=== PATIENT | female | born 1955 | race Caucasian/White ===

== ENCOUNTER 2016-08-17 17:48 | Emergency (ER) | payer OTHER ==
[~2016-08-17 17:48] MED LIST: ARTHRITIS MED; BACTRIM DS 8001 TAB; C-LEXIN500 MG PO; CELEBREX200 MG; DICLOFENAC50 MG; FLOVENT0.11 MG/AC IH; NABUMETONE500 MG PO; NORCO 325 MG-51 TAB PO; NORCO 325 MG-7.1 TAB PO; [UNRECOGNIZED DRUG - OTHER] PO
[2016-08-17] MEDS ORDERED: ALEVE220 M1 PO (17:57)
[2016-08-17] MEDS ORDERED: AMOXICILLIN875 MG PO (20:01)
[2016-08-17] MEDS ORDERED: VALIUM 2MG T2 MG/TAB PO (20:01)
[2016-08-17 20:22] VITALS: BP 108/62
== END 2016-08-17 20:22 | disposition home or self-care (01) ==
LOC: ED 17:48
DX: R42 Dizziness and giddiness (principal); J01.90 Acute sinusitis, unspecified
CPT/HCPCS: J2405; J7030

== ENCOUNTER → 2016-08-29 | Outpatient (CLI) | payer OTHER ==
[2016-08-17 20:22] VITALS: BP 108/62
[~2016-08-29] MED LIST changes: +ALEVE220 M1 PO; +AMOXICILLIN875 MG PO; +VALIUM 2MG T2 MG/TAB PO
== END ==
LOC: LAB 07:30
DX: H65.01 Acute serous otitis media, right ear (principal); R19.5 Other fecal abnormalities; J30.0 Vasomotor rhinitis; M18.11 Unilateral primary osteoarthritis of first carpometacarpal joint, right hand; M17.9 Osteoarthritis of knee, unspecified

== ENCOUNTER → 2017-06-01 | Outpatient (CLI) | payer BC ==
[2017-06-01 16:21] LABS: URINE APPEARANCE HAZY; URINE COLOR PALE YELLOW
[2017-06-01 16:22] LABS: URINE BILIRUBIN NEGATIVE (NEGATIVE); URINE BLOOD TRACE (NEGATIVE); URINE GLUCOSE NEGATIVE (NEGATIVE); URINE KETONE NEGATIVE (NEGATIVE); URINE LEUKOCYTE ESTERASE 1+ (NEGATIVE); URINE NITRATE NEGATIVE (NEGATIVE); URINE PROTEIN(semi-quant) TRACE mg/dL (NEGATIVE); URINE UROBILINOGEN NORMAL (NORMAL); URINE WBC 31-50 /hpf (0-3)
[2017-06-01 17:42] LABS: CLUE CELLS NOT OBSERVED (Not Observd)
== END ==
LOC: LAB 15:50
PROVIDERS: Nurse Practitioner Family
DX: N76.0 Acute vaginitis (principal); R39.9 Unspecified symptoms and signs involving the genitourinary system
CPT/HCPCS: Q0111

== ENCOUNTER → 2017-06-29 | Outpatient (CLI) | payer BC ==
[2017-06-29 11:51] LABS: URINE APPEARANCE CLEAR; URINE COLOR YELLOW
[2017-06-29 11:52] LABS: URINE BILIRUBIN NEGATIVE (NEGATIVE); URINE BLOOD TRACE (NEGATIVE); URINE GLUCOSE NEGATIVE (NEGATIVE); URINE KETONE NEGATIVE (NEGATIVE); URINE LEUKOCYTE ESTERASE NEGATIVE (NEGATIVE); URINE NITRATE NEGATIVE (NEGATIVE); URINE PROTEIN(semi-quant) NEGATIVE (NEGATIVE); URINE UROBILINOGEN NORMAL (NORMAL)
== END ==
LOC: LAB 11:03
PROVIDERS: Family Medicine
DX: N76.0 Acute vaginitis (principal); N39.0 Urinary tract infection, site not specified; Z88.6 Allergy status to analgesic agent; Z88.5 Allergy status to narcotic agent; Z88.8 Allergy status to other drugs, medicaments and biological substances

== ENCOUNTER → 2017-07-01 | Outpatient (CLI) | payer BC ==
[2017-07-01 12:19] LABS: EOS # 0.1 (0.04-0.40); EOS % 1.9 % (1.0-5.0); HEMATOCRIT 45.8 % (37.0-47.0); HEMOGLOBIN 14.8 g/dL (12.5-16.0); LYMPH# 1.6 (1.50-4.00); MEAN CELL VOLUME 90 fl (78-100); MEAN CORPUSCULAR HEMOGLOBIN 29 pg (27-31); MEAN CORPUSCULAR HGB CONC 32 g/dL (33-37); MEAN PLATELET VOLUME 9.5 fl (7.4-10.4); MONO # 0.4 (0.20-0.80); NEU # 2.5 (1.40-6.50); PLATELET COUNT 261 K/mm3 (130-400); RED BLOOD COUNT 5.07 M/mm3 (4.10-5.30); WHITE BLOOD COUNT 4.8 K/mm3 (4.8-10.8)
[2017-07-01 12:39] LABS: ALBUMIN 4.5 g/dL (3.5-5.0); CALCIUM 9.7 mg/dL (8.4-10.2); POTASSIUM 3.9 mmol/L (3.6-5.0); TOTAL BILIRUBIN 0.5 mg/dL (0.2-1.3); TOTAL PROTEIN 7.5 g/dL (6.3-8.2)
[2017-07-01 13:24] LABS: ERYTHROCYTE SEDIMENTATION RATE 0 mm/hr (0-30)
== END ==
LOC: LAB 12:01
PROVIDERS: Family Medicine
DX: R10.31 Right lower quadrant pain (principal); R94.5 Abnormal results of liver function studies; R11.0 Nausea; Z88.5 Allergy status to narcotic agent; Z88.8 Allergy status to other drugs, medicaments and biological substances

== ENCOUNTER → 2017-10-04 | Outpatient (CLI) | payer BC ==
[~2017-10-04] VITALS: Ht 160 cm; Wt 50.9 kg
[~2017-10-04] MED LIST changes: +CELEBREX 1100 MG/CAP PO; +DHA PO; +NORCO 325 MG-51 TA1 PO; -NORCO 325 MG-7.1 TAB PO
[2017-10-04 12:24] VITALS: BP 136/74
[2017-10-04 13:06] LABS: BASO # 0.1 (0.02-0.10); EOS # 0.1 (0.04-0.40); EOS % 1.5 % (1.0-5.0); HEMATOCRIT 42.9 % (37.0-47.0); HEMOGLOBIN 13.8 g/dL (12.5-16.0); LYMPH# 1.9 (1.50-4.00); MEAN CELL VOLUME 91 fl (78-100); MEAN CORPUSCULAR HEMOGLOBIN 29 pg (27-31); MEAN CORPUSCULAR HGB CONC 32 g/dL (33-37); MONO # 0.5 (0.20-0.80); NEU # 2.9 (1.40-6.50); PLATELET COUNT 266 K/mm3 (130-400); RED BLOOD COUNT 4.74 M/mm3 (4.10-5.30); WHITE BLOOD COUNT 5.4 K/mm3 (4.8-10.8)
[2017-10-04 13:10] LABS: ALBUMIN 4.6 g/dL (3.5-5.0); BUN/CREATININE RATIO 12.7 (6.0-26.0); CALCIUM 9.6 mg/dL (8.4-10.2); POTASSIUM 3.6 mmol/L (3.6-5.0); TOTAL BILIRUBIN 0.6 mg/dL (0.2-1.3); TOTAL PROTEIN 7.6 g/dL (6.3-8.2)
[2017-10-04 13:21] LABS: URINE APPEARANCE CLEAR; URINE BILIRUBIN NEGATIVE (NEGATIVE); URINE BLOOD NEGATIVE (NEGATIVE); URINE COLOR YELLOW; URINE GLUCOSE NEGATIVE (NEGATIVE); URINE KETONE NEGATIVE (NEGATIVE); URINE LEUKOCYTE ESTERASE TRACE (NEGATIVE); URINE NITRATE NEGATIVE (NEGATIVE); URINE PROTEIN(semi-quant) NEGATIVE (NEGATIVE); URINE UROBILINOGEN NORMAL (NORMAL); URINE WBC 0-1 /hpf (0-3)
== END ==
LOC: RAD 11:45
PROVIDERS: Student in an Organized Health Care Education/Training Program
DX: N81.10 Cystocele, unspecified (principal); M19.90 Unspecified osteoarthritis, unspecified site

== ENCOUNTER → 2018-04-12 | Outpatient (CLI) | payer BC ==
[2017-10-04 12:24] VITALS: BP 136/74
[2018-04-12 18:02] LABS: URINE APPEARANCE HAZY; URINE BILIRUBIN NEGATIVE (NEGATIVE); URINE BLOOD TRACE (NEGATIVE); URINE COLOR YELLOW; URINE GLUCOSE NEGATIVE (NEGATIVE); URINE KETONE NEGATIVE (NEGATIVE); URINE LEUKOCYTE ESTERASE 2+ (NEGATIVE); URINE NITRATE NEGATIVE (NEGATIVE); URINE PROTEIN(semi-quant) TRACE mg/dL (NEGATIVE); URINE UROBILINOGEN NORMAL (NORMAL); URINE WBC 16-30 /hpf (0-3)
== END ==
LOC: LAB 13:31
PROVIDERS: Nurse Practitioner
DX: R30.0 Dysuria (principal)

== ENCOUNTER → 2018-11-04 | Outpatient (CLI) | payer BC ==
[2017-10-04 12:24] VITALS: BP 136/74
[2018-11-04 11:40] LABS: EOS # 0.1 (0.04-0.40); EOS % 1.8 % (1.0-5.0); HEMATOCRIT 45.7 % (37.0-47.0); HEMOGLOBIN 14.3 g/dL (12.5-16.0); LYMPH# 2.1 (1.50-4.00); MEAN CELL VOLUME 92 fl (78-100); MEAN CORPUSCULAR HEMOGLOBIN 29 pg (27-31); MEAN CORPUSCULAR HGB CONC 31 g/dL (33-37); MEAN PLATELET VOLUME 9.2 fl (7.4-10.4); MONO # 0.5 (0.20-0.80); NEU # 2.4 (1.40-6.50); PLATELET COUNT 288 K/mm3 (130-400); RED BLOOD COUNT 4.96 M/mm3 (4.10-5.30); RED CELL DISTRIBUTION WIDTH 14.3 % (11.5-14.5); WHITE BLOOD COUNT 5.1 K/mm3 (4.8-10.8)
== END ==
LOC: LAB 11:15
PROVIDERS: Physician Assistant
DX: M17.12 Unilateral primary osteoarthritis, left knee (principal)

== ENCOUNTER → 2019-03-07 | Outpatient (CLI) | payer BC ==
[2017-10-04 12:24] VITALS: BP 136/74
== END ==
LOC: MAMMO 02-28 10:45
DX: Z12.31 Encounter for screening mammogram for malignant neoplasm of breast (principal)

== ENCOUNTER → 2019-05-22 | Outpatient (CLI) | payer BC ==
[2017-10-04 12:24] VITALS: BP 136/74
[2019-05-22 15:21] LABS: EOS % 0.7 % (1.0-5.0); HEMATOCRIT 43.9 % (37.0-47.0); LYMPH# 1.6 (1.50-4.00); MEAN CELL VOLUME 90 fl (78-100); MEAN CORPUSCULAR HEMOGLOBIN 29 pg (27-31); MEAN CORPUSCULAR HGB CONC 32 g/dL (33-37); MEAN PLATELET VOLUME 9.2 fl (7.4-10.4); MONO # 0.4 (0.20-0.80); NEU # 4.1 (1.40-6.50); PLATELET COUNT 304 K/mm3 (130-400); RED BLOOD COUNT 4.88 M/mm3 (4.10-5.30); RED CELL DISTRIBUTION WIDTH 13.6 % (11.5-14.5); WHITE BLOOD COUNT 6.1 K/mm3 (4.8-10.8)
[2019-05-22 15:31] LABS: ALBUMIN 4.4 g/dL (3.4-4.8); POTASSIUM 3.8 mmol/L (3.5-5.1); SODIUM 144 mmol/L (136-145)
[2019-05-22 15:32] LABS: CALCIUM 8.3 mg/dL (8.3-10.5)
[2019-05-22 15:33] LABS: GLUCOSE 92 mg/dL (65-105); TOTAL PROTEIN 7.1 g/dL (6.2-8.1)
[2019-05-22 15:34] LABS: CARBON DIOXIDE 27 mmol/L (23-31)
[2019-05-22 15:35] LABS: TOTAL BILIRUBIN 0.5 mg/dL (0.2-1.2)
[2019-05-22 15:39] LABS: AST-SGOT 17 U/L (5-34)
[2019-05-22 15:40] LABS: ALT/SGPT 12 U/L (0-55)
== END ==
LOC: LAB 15:04
PROVIDERS: Family Medicine
DX: R10.31 Right lower quadrant pain (principal); R10.814 Left lower quadrant abdominal tenderness; R19.7 Diarrhea, unspecified

== ENCOUNTER → 2019-11-24 | Outpatient (CLI) | payer MEDICARE ==
[2017-10-04 12:24] VITALS: BP 136/74
[2019-11-24 09:57] LABS: EOS # 0.1 (0.04-0.40); HEMATOCRIT 44.2 % (37.0-47.0); LYMPH# 1.5 (1.50-4.00); MEAN CELL VOLUME 90 fl (78-100); MEAN CORPUSCULAR HEMOGLOBIN 29 pg (27-31); MEAN CORPUSCULAR HGB CONC 32 g/dL (33-37); MEAN PLATELET VOLUME 9.6 fl (7.4-10.4); MONO # 0.4 (0.20-0.80); NEU # 3.4 (1.40-6.50); PLATELET COUNT 303 K/mm3 (130-400); RED CELL DISTRIBUTION WIDTH 12.8 % (11.5-14.5); WHITE BLOOD COUNT 5.4 K/mm3 (4.8-10.8)
[2019-11-24 10:00] LABS: POTASSIUM 3.8 mmol/L (3.5-5.1)
[2019-11-24 10:01] LABS: ALBUMIN 4.4 g/dL (3.4-4.8); PROTHROMBIN TIME 9.5 SECONDS (9.0-12.0)
[2019-11-24 10:02] LABS: CALCIUM 9.8 mg/dL (8.3-10.5)
[2019-11-24 10:03] LABS: TOTAL PROTEIN 7.2 g/dL (6.2-8.1)
[2019-11-24 10:05] LABS: TOTAL BILIRUBIN 0.7 mg/dL (0.2-1.2)
[2019-11-24 11:31] LABS: URINE COLOR YELLOW
[2019-11-24 11:32] LABS: URINE APPEARANCE CLEAR; URINE BILIRUBIN NEGATIVE (NEGATIVE); URINE BLOOD NEGATIVE (NEGATIVE); URINE GLUCOSE NEGATIVE (NEGATIVE); URINE KETONE NEGATIVE (NEGATIVE); URINE LEUKOCYTE ESTERASE NEGATIVE (NEGATIVE); URINE NITRATE NEGATIVE (NEGATIVE); URINE PROTEIN(semi-quant) TRACE mg/dL (NEGATIVE); URINE UROBILINOGEN NORMAL (NORMAL); URINE WBC 0-1 /hpf (0-3)
== END ==
LOC: AMSURD 09:08
PROVIDERS: Family Medicine
DX: Z12.11 Encounter for screening for malignant neoplasm of colon (principal); M17.12 Unilateral primary osteoarthritis, left knee; E78.00 Pure hypercholesterolemia, unspecified; M19.90 Unspecified osteoarthritis, unspecified site

== ENCOUNTER → 2019-12-21 | Outpatient (CLI) | payer MEDICARE ==
[2017-10-04 12:24] VITALS: BP 136/74
== END ==
LOC: PT 09:56
DX: Z01.818 Encounter for other preprocedural examination (principal)

== ENCOUNTER → 2019-12-27 | Outpatient (CLI) | payer MEDICARE ==
[2017-10-04 12:24] VITALS: BP 136/74
[2019-12-27 15:12] LABS: URINE APPEARANCE HAZY; URINE BILIRUBIN NEGATIVE (NEGATIVE); URINE BLOOD 50 ery/uL (NEGATIVE); URINE COLOR YELLOW; URINE GLUCOSE NEGATIVE (NEGATIVE); URINE KETONE NEGATIVE (NEGATIVE); URINE LEUKOCYTE ESTERASE 1+ (NEGATIVE); URINE NITRATE NEGATIVE (NEGATIVE); URINE PROTEIN(semi-quant) TRACE mg/dL (NEGATIVE); URINE UROBILINOGEN NORMAL (NORMAL)
[2019-12-27 15:13] LABS: URINE MUCUS PRESENT (NOT PRESENT)
== END ==
LOC: LAB 14:52
PROVIDERS: Family Medicine
DX: R35.0 Frequency of micturition (principal); R30.9 Painful micturition, unspecified; R82.71 Bacteriuria; R31.9 Hematuria, unspecified

== ENCOUNTER 2020-01-31 09:15 | Outpatient (RCR) | payer MEDICARE ==
[2017-10-04 12:24] VITALS: BP 136/74
== END 2020-01-31 10:00 | disposition still patient (30) ==
LOC: PT 09:15
DX: Z47.1 Aftercare following joint replacement surgery (principal); Z96.652 Presence of left artificial knee joint

== ENCOUNTER 2020-02-15 09:00 | Outpatient (RCR) | payer MEDICARE ==
[2017-10-04 12:24] VITALS: BP 136/74
== END 2020-02-15 09:30 | disposition still patient (30) ==
LOC: PT 09:00
DX: Z47.1 Aftercare following joint replacement surgery (principal); Z96.652 Presence of left artificial knee joint

== ENCOUNTER → 2020-04-02 | Outpatient (CLI) | payer MEDICARE ==
[2017-10-04 12:24] VITALS: BP 136/74
== END ==
LOC: MAMMO 09:06
DX: Z12.31 Encounter for screening mammogram for malignant neoplasm of breast (principal)

== ENCOUNTER → 2020-04-02 | Outpatient (CLI) | payer MEDICARE ==
[2017-10-04 12:24] VITALS: BP 136/74
== END ==
LOC: MAMMO 09:07
DX: M81.0 Age-related osteoporosis without current pathological fracture (principal)

== ENCOUNTER → 2020-07-10 | Outpatient (CLI) | payer MEDICARE ==
[2020-05-05 14:25] VITALS: BP 118/68
[~2020-07-10] MED LIST changes: +ALENDRONATE SOD10 M1 PO; +ATORVASTATIN CA10 MG PO
[2020-07-10 18:15] LABS: ALBUMIN 4.3 g/dL (3.4-4.8)
[2020-07-10 18:18] LABS: TOTAL PROTEIN 7.3 g/dL (6.2-8.1)
[2020-07-10 18:20] LABS: TOTAL BILIRUBIN 0.5 mg/dL (0.2-1.2)
[2020-07-10 18:23] LABS: DIRECT BILIRUBIN 0.2 mg/dL (0.0-0.5)
== END ==
LOC: LAB 11:26
PROVIDERS: Family Medicine
DX: E78.00 Pure hypercholesterolemia, unspecified (principal)

== ENCOUNTER 2020-08-19 11:00 | Outpatient (RCR) | payer MEDICARE ==
[2020-05-05 14:25] VITALS: BP 118/68
== END 2020-09-22 | disposition home or self-care (01) ==
LOC: PT
DX: Z47.89 Encounter for other orthopedic aftercare (principal)

== ENCOUNTER → 2020-09-12 | Outpatient (CLI) | payer MEDICARE ==
[2020-05-05 14:25] VITALS: BP 118/68
== END ==
LOC: LAB 14:00
DX: R30.9 Painful micturition, unspecified (principal)

== ENCOUNTER 2021-04-13 16:43 | Emergency (ER) | payer MEDICARE ==
[2021-04-13 17:13] LABS: BASO # 0.03 K/mm3 (0.02-0.10); EOS # 0.22 K/mm3 (0.04-0.40); EOS % 3.9 % (1.0-5.0); HEMATOCRIT 42.9 % (37.0-47.0); HEMOGLOBIN 13.7 g/dL (12.5-16.0); MEAN CELL VOLUME 90 fl (78-100); MEAN CORPUSCULAR HEMOGLOBIN 29 pg (27-31); MEAN CORPUSCULAR HGB CONC 32 g/dL (33-37); MEAN PLATELET VOLUME 9.7 fl (7.4-10.4); MONO # 0.55 K/mm3 (0.20-0.80); PLATELET COUNT 253 K/mm3 (130-400); RED BLOOD COUNT 4.76 M/mm3 (4.10-5.30); RED CELL DISTRIBUTION WIDTH 12.9 % (11.5-14.5); WHITE BLOOD COUNT 5.7 K/mm3 (4.8-10.8)
[2021-04-13 17:28] LABS: ALBUMIN 4.5 g/dL (3.4-4.8)
[2021-04-13 17:29] LABS: POTASSIUM 3.3 mmol/L (3.5-5.1); SODIUM 141 mmol/L (136-145)
[2021-04-13 17:30] LABS: CALCIUM 10.1 mg/dL (8.3-10.5)
[2021-04-13 17:31] LABS: GLUCOSE 107 mg/dL (65-105); TOTAL PROTEIN 7.2 g/dL (6.2-8.1)
[2021-04-13 17:32] LABS: CARBON DIOXIDE 24 mmol/L (23-31)
[2021-04-13 17:33] LABS: TOTAL BILIRUBIN 0.5 mg/dL (0.2-1.2)
[2021-04-13 17:36] LABS: AST-SGOT 25 U/L (5-34)
[2021-04-13 17:38] LABS: ALT/SGPT 17 U/L (0-55)
[2021-04-13 17:45] LABS: TROPONIN-I < 0.03 ng/mL (<0.030)
[2021-04-13] MEDS ORDERED: POTASSIUM CHLO20 ME4 PO (19:12)
[2021-04-13] MEDS ORDERED: METOPROLOL SUCC25 M1 PO (19:12)
[2021-04-13 19:30] VITALS: BP 126/71
== END 2021-04-13 19:30 | disposition home or self-care (01) ==
LOC: ED 16:43
PROVIDERS: Family Medicine
DX: I49.8 Other specified cardiac arrhythmias (principal); E87.6 Hypokalemia; E78.5 Hyperlipidemia, unspecified; Z86.79 Personal history of other diseases of the circulatory system; Z79.899 Other long term (current) drug therapy

== ENCOUNTER → 2021-04-17 | Outpatient (CLI) | payer MEDICARE ==
[~2021-04-17] MED LIST changes: +METOPROLOL SUCC25 M1 PO; +POTASSIUM CHLO20 ME4 PO
== END ==
LOC: LAB 09:15
PROVIDERS: Family Medicine
DX: E87.6 Hypokalemia (principal)

== ENCOUNTER → 2021-04-21 | Outpatient (CLI) | payer MEDICARE | LOC: MAMMO 10:25 | DX: Z12.31 Encounter for screening mammogram for malignant neoplasm of breast (principal) ==

== ENCOUNTER → 2021-06-30 | Outpatient (CLI) | payer MEDICARE ==
[2021-06-30 10:15] LABS: ALBUMIN 4.1 g/dL (3.4-4.8); POTASSIUM 4.2 mmol/L (3.5-5.1)
[2021-06-30 10:16] LABS: CALCIUM 9.8 mg/dL (8.3-10.5)
[2021-06-30 10:18] LABS: TOTAL PROTEIN 6.8 g/dL (6.2-8.1)
[2021-06-30 10:19] LABS: TOTAL BILIRUBIN 0.5 mg/dL (0.2-1.2)
[2021-06-30 10:26] LABS: BASO # 0.04 K/mm3 (0.02-0.10); EOS # 0.15 K/mm3 (0.04-0.40); EOS % 3.6 % (1.0-5.0); HEMATOCRIT 40.7 % (37.0-47.0); HEMOGLOBIN 13.3 g/dL (12.5-16.0); LYMPH# 1.07 K/mm3 (1.50-4.00); MEAN CELL VOLUME 91 fl (78-100); MEAN CORPUSCULAR HEMOGLOBIN 30 pg (27-31); MEAN CORPUSCULAR HGB CONC 33 g/dL (33-37); MEAN PLATELET VOLUME 9.8 fl (7.4-10.4); MONO # 0.44 K/mm3 (0.20-0.80); NEU # 2.43 K/mm3 (1.40-6.50); PLATELET COUNT 248 K/mm3 (130-400); RED BLOOD COUNT 4.48 M/mm3 (4.10-5.30); RED CELL DISTRIBUTION WIDTH 12.9 % (11.5-14.5); WHITE BLOOD COUNT 4.1 K/mm3 (4.8-10.8)
== END ==
LOC: LAB 06-27 08:13
PROVIDERS: Pediatrics Pediatric Rheumatology
DX: M48.061 Spinal stenosis, lumbar region without neurogenic claudication (principal)

== ENCOUNTER → 2021-07-21 | Outpatient (CLI) | payer MEDICARE | LOC: LAB 07:56 | DX: E78.00 Pure hypercholesterolemia, unspecified (principal); M13.80 Other specified arthritis, unspecified site; L82.1 Other seborrheic keratosis ==

== ENCOUNTER → 2021-09-13 | Outpatient (CLI) | payer MEDICARE ==
[2021-09-13 19:13] LABS: URINE APPEARANCE CLEAR; URINE BILIRUBIN NEGATIVE (NEGATIVE); URINE BLOOD NEGATIVE (NEGATIVE); URINE COLOR STRAW; URINE GLUCOSE NEGATIVE (NEGATIVE); URINE KETONE NEGATIVE (NEGATIVE); URINE LEUKOCYTE ESTERASE NEGATIVE (NEGATIVE); URINE NITRATE NEGATIVE (NEGATIVE); URINE PROTEIN(semi-quant) NEGATIVE (NEGATIVE); URINE UROBILINOGEN NORMAL (NORMAL); URINE WBC 0-1 /hpf (0-3)
== END ==
LOC: LAB 18:50
PROVIDERS: Nurse Practitioner Family
DX: R10.9 Unspecified abdominal pain (principal)

== ENCOUNTER → 2021-09-25 | Outpatient (CLI) | payer MEDICARE | LOC: RAD 09:55 | DX: M19.042 Primary osteoarthritis, left hand (principal) ==

== ENCOUNTER → 2022-04-07 | Outpatient (CLI) | payer MEDICARE | LOC: RAD 14:03 → MAMMO 14:30 | DX: M81.8 Other osteoporosis without current pathological fracture (principal); M85.88 Other specified disorders of bone density and structure, other site; Z78.0 Asymptomatic menopausal state ==

== ENCOUNTER → 2022-04-07 | Outpatient (CLI) | payer MEDICARE | LOC: MAMMO 13:57 | DX: Z12.31 Encounter for screening mammogram for malignant neoplasm of breast (principal); M81.0 Age-related osteoporosis without current pathological fracture ==

== ENCOUNTER → 2023-04-12 | Outpatient (CLI) | payer MEDICARE | LOC: MAMMO 14:22 | DX: Z12.31 Encounter for screening mammogram for malignant neoplasm of breast (principal) ==

== ENCOUNTER → 2023-04-12 | Outpatient (CLI) | payer MEDICARE | LOC: RAD 14:30 | DX: E04.1 Nontoxic single thyroid nodule (principal) ==

== ENCOUNTER → 2024-04-13 | Outpatient (CLI) | payer MEDICARE | LOC: MAMMO 13:26 | DX: Z12.31 Encounter for screening mammogram for malignant neoplasm of breast (principal) ==

== ENCOUNTER → 2024-06-08 | Outpatient (CLI) | payer MEDICARE | LOC: RAD 13:23 → MAMMO 13:30 | DX: M81.8 Other osteoporosis without current pathological fracture (principal) ==

== ENCOUNTER → 2024-07-18 | Outpatient (CLI) | payer MEDICARE | LOC: RAD 10:25 | DX: R07.2 Precordial pain (principal) ==